=== PATIENT | female | born 2000 | race Asian ===

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

== ENCOUNTER 2020-05-19 10:01 | Emergency (ER) | payer MEDICAID, OTHER ==
[~2020-05-19] VITALS: Ht 165.1 cm; Wt 92.2 kg
[~2020-05-19 10:01] MED LIST: FLUT16SP2 BOTHNARES
[2020-05-19 10:08] VITALS: BP 136/84
[2020-05-19] MEDS ORDERED: CYCL-1 PO (11:27)
== END 2020-05-19 11:34 | disposition home or self-care (01) ==
LOC: ER 10:02
DX: S13.4XXA Sprain of ligaments of cervical spine, initial encounter (principal); M54.5 Low back pain; Z72.89 Other problems related to lifestyle; Z79.899 Other long term (current) drug therapy; V87.7XXA Person injured in collision between other specified motor vehicles (traffic), initial encounter; Y93.89 Activity, other specified; Y92.488 Other paved roadways as the place of occurrence of the external cause; Y99.8 Other external cause status
CPT/HCPCS: 72040; 99283

== ENCOUNTER 2021-11-26 18:42 | Emergency (ER) | payer MEDICAID ==
[~2021-11-26] VITALS: Ht 167.6 cm; Wt 97.7 kg
[~2021-11-26 18:42] MED LIST changes: +CYCL-1 PO
[2021-11-26] MEDS ORDERED: pantoprazole IV 80 MG in normal saline 100ml IV soln 100 ML IV ONE (19:00)
[2021-11-26] MEDS ORDERED: ondansetron/PF 4mg/2ml inj IV ONE (19:25)
[2021-11-26] MEDS ORDERED: morphine 4 MG/ML inj SYRINge IV ONE (19:25)
[2021-11-26] MEDS: pantoprazole 40MG/NS 100ML BAG 100 ML IV SCH ×2 (19:30→19:53)
[2021-11-26] MEDS ORDERED: normal saline 1000ml 1,000 ML IV ONE (19:40)
[2021-11-26 19:42] LABS: BASOPHILS % (AUTO) 0.4 % (0-1); EOSINOPHILS # (AUTO) 0.3 X10'3 (0-0.9); EOSINOPHILS % (AUTO) 2.3 % (0-6); HEMATOCRIT 39.1 % (35.0-45.0); LYMPHOCYTES # (AUTO) 2.6 X10'3 (1.1-4.8); LYMPHOCYTES % (AUTO) 21.1 % (21-51); MEAN CORPUSCULAR HEMOGLOBIN 25.9 PG (27.0-31.0); MEAN CORPUSCULAR HGB CONC 33.4 g/dL (33.0-36.5); MEAN CORPUSCULAR VOLUME 77.7 FL (78-98); MEAN PLATELET VOLUME 8.1 FL (7.4-10.4); MONOCYTES # (AUTO) 0.7 X10'3 (0-0.9); NEUTROPHILS # (AUTO) 8.7 X10'3 (1.8-7.7); NEUTROPHILS % (AUTO) 70.2 % (42-75); PLATELET COUNT 364 X10'3 (140-440); RED BLOOD COUNT 5.03 X10'6 (4.20-5.60); RED CELL DISTRIBUTION WIDTH 15.3 % (11.5-14.5); WHITE BLOOD COUNT 12.4 X10'3 (4.5-11.0)
[2021-11-26 19:43] LABS: ALANINE AMINOTRANSFERASE 24 U/L (12-78); ALBUMIN/GLOBULIN RATIO 0.9 (1.1-1.5); ALKALINE PHOSPHATASE 100 IU/L (20-180); ANION GAP 9 (8-16); ASPARTATE AMINO TRANSFERASE 18 U/L (10-37); BILIRUBIN,TOTAL 0.6 MG/DL (0.1-1.0); BLOOD UREA NITROGEN 9 MG/DL (7-18); BUN/CREATININE RATIO 14.5 (6.6-38.0); CHLORIDE 103 MMOL/L (99-107); CREATININE 0.62 MG/DL (0.40-0.90); GLUCOSE 96 MG/DL (70-104); SODIUM 138 MMOL/L (135-145); TOTAL PROTEIN 8.6 G/DL (6.4-8.2); eGFR > 90 ML/MIN
[2021-11-26 19:48] LABS: APTT 30 SECONDS (22-32)
[2021-11-26] MEDS ORDERED: PANT-47 PO (19:58)
[2021-11-26 20:29] VITALS: BP 128/81
== END 2021-11-26 20:43 | disposition home or self-care (01) ==
LOC: ER 18:43
DX: K92.0 Hematemesis (principal); R10.13 Epigastric pain; R42 Dizziness and giddiness; Z72.89 Other problems related to lifestyle; Z79.899 Other long term (current) drug therapy
CPT/HCPCS: 36415; 80053; 85025; 85610; 85730; 96365; 96375; 99284; C9113; J2270; J2405; J7030